=== PATIENT | female | born 1945 | race American Indian/Alaskan Native ===

== ENCOUNTER 2017-06-21 16:45 | Inpatient (IN) | payer MEDICARE ==
[~2017-06-21] VITALS: Ht 152.4 cm; Wt 63.6 kg
[2017-06-21 17:27] LABS: BASOPHILS ABSOLUTE AUTO 0.04 K/mm3 (0.00-0.23); BASOPHILS PERCENT AUTO 0 % (0-2); EOSINOPHILS ABSOLUTE AUTO 0.16 K/mm3 (0.00-0.68); EOSINOPHILS PERCENT AUTO 1 % (0-6); Hematocrit 30.2 % (33.0-51.0); Hemoglobin 9.7 g/dL (11.5-16.0); IMMATURE GRAN ABSOLUTE AUTO 0.17 K/mm3 (0.00-0.10); IMMATURE GRAN PERCENT AUTO 1 % (0-1); LYMPHOCYTES PERCENT AUTO 9 % (21-46); MONOCYTES ABSOLUTE AUTO 0.55 K/mm3 (0.16-1.47); MONOCYTES PERCENT AUTO 4 % (4-13); Mean Corpuscular HGB 29.2 pg (26.0-34.0); Mean Corpuscular HGB Conc 32.1 g/dL (31.5-36.5); Mean Corpuscular Volume 91 fL (80-100); Mean Platelet Volume 10.5 fL (9.1-12.4); NEUTROPHILS ABSOLUTE AUTO 12.05 K/mm3 (1.96-9.15); NEUTROPHILS PERCENT AUTO 84 % (41-73); Platelet Count 243 K/mm3 (150-400); RDW Coefficient Variation 14.3 % (11.7-14.2); RDW Standard Deviation 47.4 fL (35.1-46.3); Red Blood Cell Count 3.32 M/mm3 (3.80-5.20); White Blood Cell Count 14.27 K/mm3 (4.00-11.30)
[2017-06-21 17:35] LABS: Source, Urine Catheter
[2017-06-21 17:39] LABS: Alanine Aminotransfer (ALT/SGP 26 U/L (12-78); Albumin, Blood 3.3 g/dL (3.4-5.0); Alk Phos 105 U/L (50-136); Anion Gap 17 mmol/L (6-16); Aspartate Aminotrans (AST/SGOT 21 U/L (12-37); Bilirubin, Total 0.6 mg/dL (0.1-1.0); Blood Urea Nitrogen 72 mg/dL (8-24); Bun/Creatinine Ratio 32.6 (12.0-20.0); CO2, Blood 13 mmol/L (21-32); Calcium, Blood 8.8 mg/dL (8.5-10.1); Chloride, Blood 109 mmol/L (98-108); Creatinine, Blood 2.21 mg/dL (0.40-1.00); Globulin, Blood 3.3 g/dL (2.2-4.0); Glomerular Filtration Rate 23 (60-); Glucose, Blood 352 mg/dL (70-99); Magnesium, Blood 2.1 mg/dL (1.6-2.4); Potassium, Blood 4.4 mmol/L (3.5-5.5); Sodium, Blood 139 mmol/L (136-145); Total Protein, Blood 6.6 g/dL (6.4-8.2); Troponin I <0.015 ng/mL (0.000-0.040)
[2017-06-21] MEDS ORDERED: HYDCHL12.5 PO (17:42)
[2017-06-21] MEDS ORDERED: GABA300 PO (17:42)
[2017-06-21] MEDS ORDERED: VERA80 (17:42)
[2017-06-21] MEDS ORDERED: LISI20 PO (17:42)
[2017-06-21 17:50] LABS: Bilirubin, Urine Neg (Neg); Blood, Urine 2+ (Neg); Glucose Qualitative, Urine 2+ (Neg); Ketones, Urine Neg (Neg); Leukocyte Esterase, Urine 3+ (Neg); Nitrite, Urine Neg (Neg); Protein, Urine 4+ (Neg); Urobilinogen, Urine 1+ (Normal)
[2017-06-21 18:00] LABS: Appearance, Urine Hazy (Clear); Color, Urine Yellow (P-Yellow); Influenza A Negative (NEGATIVE); Influenza B Negative (NEGATIVE)
[2017-06-21 18:01] LABS: White Blood Cells, Urine TNTC /hpf (0-5)
[2017-06-21 18:02] LABS: Bacteria Many /hpf; Squamous Epithelial Cells Few /hpf (Few)
[2017-06-21 19:05] LABS: International Normalized Ratio 1.05; Prothrombin Time Results 10.9 Sec (9.7-11.5)
[2017-06-22 05:35] LABS: BASOPHILS ABSOLUTE AUTO 0.03 K/mm3 (0.00-0.23); BASOPHILS PERCENT AUTO 0 % (0-2); EOSINOPHILS PERCENT AUTO 0 % (0-6); Hematocrit 32.2 % (33.0-51.0); Hemoglobin 10.5 g/dL (11.5-16.0); IMMATURE GRAN ABSOLUTE AUTO 0.18 K/mm3 (0.00-0.10); IMMATURE GRAN PERCENT AUTO 1 % (0-1); LYMPHOCYTES ABSOLUTE AUTO 0.52 K/mm3 (0.84-5.20); LYMPHOCYTES PERCENT AUTO 3 % (21-46); MONOCYTES PERCENT AUTO 4 % (4-13); Mean Corpuscular HGB 28.6 pg (26.0-34.0); Mean Corpuscular HGB Conc 32.6 g/dL (31.5-36.5); Mean Corpuscular Volume 88 fL (80-100); Mean Platelet Volume 10.4 fL (9.1-12.4); NEUTROPHILS ABSOLUTE AUTO 19.54 K/mm3 (1.96-9.15); NEUTROPHILS PERCENT AUTO 93 % (41-73); Platelet Count 265 K/mm3 (150-400); RDW Standard Deviation 45.1 fL (35.1-46.3); Red Blood Cell Count 3.67 M/mm3 (3.80-5.20); White Blood Cell Count 21.07 K/mm3 (4.00-11.30)
[2017-06-22 06:04] LABS: Troponin I <0.015 ng/mL (0.000-0.040)
[2017-06-22 06:12] LABS: Alanine Aminotransfer (ALT/SGP 28 U/L (12-78); Albumin, Blood 3.3 g/dL (3.4-5.0); Albumin/Globulin Ratio 0.9 (0.8-1.8); Alk Phos 102 U/L (50-136); Anion Gap 13 mmol/L (6-16); Aspartate Aminotrans (AST/SGOT 20 U/L (12-37); Bilirubin, Total 0.5 mg/dL (0.1-1.0); Blood Urea Nitrogen 57 mg/dL (8-24); Bun/Creatinine Ratio 33.9 (12.0-20.0); CO2, Blood 18 mmol/L (21-32); Calcium, Blood 8.1 mg/dL (8.5-10.1); Chloride, Blood 112 mmol/L (98-108); Creatinine, Blood 1.68 mg/dL (0.40-1.00); Globulin, Blood 3.7 g/dL (2.2-4.0); Glomerular Filtration Rate 32 (60-); Glucose, Blood 280 mg/dL (70-99); Potassium, Blood 4.8 mmol/L (3.5-5.5); Sodium, Blood 143 mmol/L (136-145)
[2017-06-23] MEDS ORDERED: VERA180ERB PO (01:05)
[2017-06-23] MEDS ORDERED: ATOR40TA PO (01:08)
[2017-06-23] MEDS ORDERED: Sodium Bicarbo650 MG PO (01:10)
[2017-06-23] MEDS ORDERED: TRADJENTA5 MG PO (01:12)
[2017-06-23] MEDS ORDERED: CHOL10002 PO (01:13)
[2017-06-23 05:52] LABS: BASOPHILS ABSOLUTE AUTO 0.04 K/mm3 (0.00-0.23); BASOPHILS PERCENT AUTO 0 % (0-2); EOSINOPHILS ABSOLUTE AUTO 0.01 K/mm3 (0.00-0.68); EOSINOPHILS PERCENT AUTO 0 % (0-6); Hematocrit 33.5 % (33.0-51.0); Hemoglobin 11.1 g/dL (11.5-16.0); IMMATURE GRAN ABSOLUTE AUTO 0.14 K/mm3 (0.00-0.10); IMMATURE GRAN PERCENT AUTO 1 % (0-1); LYMPHOCYTES ABSOLUTE AUTO 0.76 K/mm3 (0.84-5.20); LYMPHOCYTES PERCENT AUTO 5 % (21-46); MONOCYTES ABSOLUTE AUTO 0.49 K/mm3 (0.16-1.47); MONOCYTES PERCENT AUTO 3 % (4-13); Mean Corpuscular HGB 28.8 pg (26.0-34.0); Mean Corpuscular HGB Conc 33.1 g/dL (31.5-36.5); Mean Corpuscular Volume 87 fL (80-100); Mean Platelet Volume 10.6 fL (9.1-12.4); NEUTROPHILS ABSOLUTE AUTO 15.55 K/mm3 (1.96-9.15); NEUTROPHILS PERCENT AUTO 92 % (41-73); Platelet Count 262 K/mm3 (150-400); RDW Coefficient Variation 14.5 % (11.7-14.2); RDW Standard Deviation 45.7 fL (35.1-46.3); Red Blood Cell Count 3.86 M/mm3 (3.80-5.20); White Blood Cell Count 16.99 K/mm3 (4.00-11.30)
[2017-06-23 06:13] LABS: Bun/Creatinine Ratio 28.9 (12.0-20.0); Creatinine, Blood 1.42 mg/dL (0.40-1.00); Potassium, Blood 4.1 mmol/L (3.5-5.5)
[2017-06-23 11:00] LABS: IMMATURE RETIC FRACTION 5.8 % (2.3-16.0); RETIC HGB EQUIVALENT 34.9 pg (28.20-36.60); RETICULOCYTE ABSOLUTE 0.0683 M/mm3 (0.0200-0.1100); RETICULOCYTE COUNT PERCENT 1.72 % (0.50-2.50)
[2017-06-23 11:12] LABS: Percent Saturation 15.7 % (15.0-50.0)
[2017-06-24 06:07] LABS: BASOPHILS ABSOLUTE AUTO 0.02 K/mm3 (0.00-0.23); BASOPHILS PERCENT AUTO 0 % (0-2); EOSINOPHILS ABSOLUTE AUTO 0.01 K/mm3 (0.00-0.68); EOSINOPHILS PERCENT AUTO 0 % (0-6); Hematocrit 31.3 % (33.0-51.0); Hemoglobin 10.6 g/dL (11.5-16.0); IMMATURE GRAN ABSOLUTE AUTO 0.17 K/mm3 (0.00-0.10); IMMATURE GRAN PERCENT AUTO 1 % (0-1); LYMPHOCYTES ABSOLUTE AUTO 1.33 K/mm3 (0.84-5.20); LYMPHOCYTES PERCENT AUTO 9 % (21-46); MONOCYTES ABSOLUTE AUTO 1.22 K/mm3 (0.16-1.47); MONOCYTES PERCENT AUTO 8 % (4-13); Mean Corpuscular HGB 28.6 pg (26.0-34.0); Mean Corpuscular HGB Conc 33.9 g/dL (31.5-36.5); Mean Platelet Volume 10.3 fL (9.1-12.4); NEUTROPHILS ABSOLUTE AUTO 12.91 K/mm3 (1.96-9.15); NEUTROPHILS PERCENT AUTO 82 % (41-73); Platelet Count 276 K/mm3 (150-400); RDW Coefficient Variation 14.4 % (11.7-14.2); RDW Standard Deviation 44.4 fL (35.1-46.3); Red Blood Cell Count 3.71 M/mm3 (3.80-5.20); White Blood Cell Count 15.66 K/mm3 (4.00-11.30)
[2017-06-24 06:08] LABS: Mean Corpuscular Volume 84 fL (80-100)
[2017-06-24 06:30] LABS: Creatinine, Blood 2.44 mg/dL (0.40-1.00); Potassium, Blood 4.2 mmol/L (3.5-5.5)
[2017-06-25 05:28] LABS: BASOPHILS ABSOLUTE AUTO 0.02 K/mm3 (0.00-0.23); BASOPHILS PERCENT AUTO 0 % (0-2); EOSINOPHILS ABSOLUTE AUTO 0.11 K/mm3 (0.00-0.68); EOSINOPHILS PERCENT AUTO 1 % (0-6); Hematocrit 30.1 % (33.0-51.0); Hemoglobin 9.8 g/dL (11.5-16.0); IMMATURE GRAN ABSOLUTE AUTO 0.12 K/mm3 (0.00-0.10); IMMATURE GRAN PERCENT AUTO 1 % (0-1); LYMPHOCYTES ABSOLUTE AUTO 1.75 K/mm3 (0.84-5.20); LYMPHOCYTES PERCENT AUTO 14 % (21-46); MONOCYTES ABSOLUTE AUTO 0.95 K/mm3 (0.16-1.47); MONOCYTES PERCENT AUTO 8 % (4-13); Mean Corpuscular HGB 28.4 pg (26.0-34.0); Mean Corpuscular HGB Conc 32.6 g/dL (31.5-36.5); Mean Platelet Volume 9.8 fL (9.1-12.4); NEUTROPHILS ABSOLUTE AUTO 9.21 K/mm3 (1.96-9.15); NEUTROPHILS PERCENT AUTO 76 % (41-73); Platelet Count 266 K/mm3 (150-400); RDW Coefficient Variation 14.4 % (11.7-14.2); RDW Standard Deviation 45.8 fL (35.1-46.3); Red Blood Cell Count 3.45 M/mm3 (3.80-5.20); White Blood Cell Count 12.16 K/mm3 (4.00-11.30)
[2017-06-25 05:30] LABS: Mean Corpuscular Volume 87 fL (80-100)
[2017-06-25 06:10] LABS: Bun/Creatinine Ratio 22.3 (12.0-20.0); Creatinine, Blood 2.69 mg/dL (0.40-1.00); Potassium, Blood 3.6 mmol/L (3.5-5.5)
[2017-06-25] MEDS ORDERED: METR250 PO (10:06)
[2017-06-25] MEDS ORDERED: LEVO750 PO (10:06)
[2017-06-25] MEDS ORDERED: ACET325 PO (10:06)
[2017-06-25] MEDS ORDERED: LEVEMIR FL100 UNIT/1 SC (10:08)
[2017-06-25] MEDS ORDERED: ONDA4ODT MM (10:09)
[2017-06-25 13:37] LABS: Stool Occult Blood Guaiac 1 Pos (Neg)
== END 2017-06-25 12:00 | disposition home or self-care (01) | DRG 872 ==
LOC: ER 16:45 → MEDS 18:50 → ENPENDDIS 06-25 09:00 → MEDS 06-25 12:00
PROVIDERS: Emergency Medicine; Family Medicine; Hospitalist; Internal Medicine
PROC: 3E0234Z Introduction of Serum, Toxoid and Vaccine into Muscle, Percutaneous Approach (ICD-10-PCS; principal; 2017-06-21)
DX: A41.51 Sepsis due to Escherichia coli [E. coli] (principal); N17.9 Acute kidney failure, unspecified; E11.22 Type 2 diabetes mellitus with diabetic chronic kidney disease; E11.65 Type 2 diabetes mellitus with hyperglycemia; I95.9 Hypotension, unspecified; D63.1 Anemia in chronic kidney disease; N18.3 Chronic kidney disease, stage 3 (moderate); N39.0 Urinary tract infection, site not specified; Z23 Encounter for immunization; K52.9 Noninfective gastroenteritis and colitis, unspecified; K80.80 Other cholelithiasis without obstruction; I12.9 Hypertensive chronic kidney disease with stage 1 through stage 4 chronic kidney disease, or unspecified chronic kidney disease; E86.0 Dehydration; E78.5 Hyperlipidemia, unspecified; Z66 Do not resuscitate; M54.2 Cervicalgia; Z91.14 Patient's other noncompliance with medication regimen; Z87.891 Personal history of nicotine dependence; Z79.899 Other long term (current) drug therapy
CPT/HCPCS: 36415; 71045; 72040; 74177; 76705; 80048; 80053; 81001; 82272; 82607; 82728; 82746; 82947; 83036; 83540; 83550; 83605; 83735; 84484; 85025; 85045; 85610; 85730; 87040; 87077; 87086; 87186; 87493; 87804; 93005; 93010; 96361; 96374; 99285; A9270; G0008; J0360; J0696; J1650; J1815; J1817; J1956; J2405; J7030; Q2038; Q9967

== ENCOUNTER → 2017-07-04 | Outpatient (CLI) | payer MEDICARE ==
[~2017-07-04] MED LIST: ACET325 PO; ATOR40TA PO; CHOL10002 PO; GABA300 PO; HYDCHL12.5 PO; LEVEMIR FL100 UNIT/1 SC; LEVO750 PO; LISI20 PO; METR250 PO; ONDA4ODT MM; Sodium Bicarbo650 MG PO; TRADJENTA5 MG PO; VERA180ERB PO; VERA80
[2017-07-04 16:51] LABS: Creatinine, Urine Random 75.9 mg/dL (27.00-270.00); Protein, Urine Random 15.1 mg/dL (0.0-11.9)
== END | disposition home or self-care (01) ==
LOC: OLS 13:22
PROVIDERS: Internal Medicine
DX: N18.3 Chronic kidney disease, stage 3 (moderate) (principal)
CPT/HCPCS: 82570; 84156

== ENCOUNTER 2018-07-19 13:44 | Inpatient (IN) | payer MEDICARE ==
[~2018-07-19] VITALS: Ht 167.6 cm; Wt 68.5 kg
[2018-07-19 14:25] LABS: Source, Urine Catheter
[2018-07-19] MEDS ORDERED: HYDCHL25 PO (14:29)
[2018-07-19] MEDS ORDERED: SITA50T2 PO (14:30)
[2018-07-19 14:34] LABS: Appearance, Urine Hazy (Clear); Bilirubin, Urine Neg (Neg); Blood, Urine 1+ (Neg); Color, Urine Yellow (P-Yellow); Glucose Qualitative, Urine 1+ (Neg); Ketones, Urine Neg (Neg); Leukocyte Esterase, Urine Neg (Neg); Nitrite, Urine Neg (Neg); Protein, Urine 2+ (Neg); Urobilinogen, Urine 1+ (Normal)
[2018-07-19 14:43] LABS: Hematocrit 26.5 % (33.0-51.0); Hemoglobin 8.6 g/dL (11.5-16.0); Mean Corpuscular HGB 30.1 pg (26.0-34.0); Mean Corpuscular HGB Conc 32.5 g/dL (31.5-36.5); Mean Corpuscular Volume 93 fL (80-100); Mean Platelet Volume 10.9 fL (9.1-12.4); NRBC ABSOLUTE 0.05 K/mm3 (0.00-0.02); NRBC Auto 1.9 /100 WBC (0.0-0.2); Platelet Count 188 K/mm3 (150-400); RDW Coefficient Variation 13.2 % (11.7-14.2); RDW Standard Deviation 45.3 fL (35.1-46.3); Red Blood Cell Count 2.86 M/mm3 (3.80-5.20)
[2018-07-19 14:44] LABS: Bacteria Rare /hpf; Squamous Epithelial Cells Many /hpf (Few)
[2018-07-19 14:50] LABS: PCO2 Arterial 26.6 mmHg (35-45); PO2 Arterial 46 mmHg (80-100); pH Blood Arterial 7.29 (7.35-7.45)
[2018-07-19 14:59] LABS: Alanine Aminotransfer (ALT/SGP 17 U/L (12-78); Albumin, Blood 2.2 g/dL (3.4-5.0); Albumin/Globulin Ratio 0.5 (0.8-1.8); Alk Phos 82 U/L (50-136); Anion Gap 18 mmol/L (6-16); Aspartate Aminotrans (AST/SGOT 20 U/L (12-37); Bilirubin, Total 0.6 mg/dL (0.1-1.0); Blood Urea Nitrogen 121 mg/dL (8-24); Bun/Creatinine Ratio 26.9 (12.0-20.0); CO2, Blood 12 mmol/L (21-32); Calcium, Blood 8.3 mg/dL (8.5-10.1); Chloride, Blood 106 mmol/L (98-108); Creatinine, Blood 4.49 mg/dL (0.40-1.00); Globulin, Blood 4.2 g/dL (2.2-4.0); Glomerular Filtration Rate 10 (60-); Glucose, Blood 241 mg/dL (70-99); Magnesium, Blood 1.8 mg/dL (1.6-2.4); Potassium, Blood 3.8 mmol/L (3.5-5.5); Sodium, Blood 136 mmol/L (136-145); Total Protein, Blood 6.4 g/dL (6.4-8.2); Troponin I <0.015 ng/mL (0.000-0.040)
[2018-07-19 15:05] LABS: Influenza A Negative (NEGATIVE); Influenza B Negative (NEGATIVE)
[2018-07-19 15:40] LABS: BAND PERCENT MAN 17 % (0-8); BASOPHILS PERCENT MAN 0 % (0-2); BLASTS PERCENT MAN 2 % (0-0); EOSINOPHILS PERCENT MAN 0 % (0-6); LYMPHOCYTES ABSOLUTE MAN 0.35 K/mm3 (0.84-5.20); LYMPHOCYTES PERCENT MAN 13 % (21-46); METAMYELOCYTE ABSOLUTE MAN 1.05 K/mm3 (0.00-0.00); METAMYELOCYTE PERCENT MAN 39 % (0-0); MONOCYTES ABSOLUTE MAN 0.18 K/mm3 (0.16-1.47); MONOCYTES PERCENT MAN 7 % (4-13); MYELOCYTE ABSOLUTE MAN 0.32 K/mm3 (0.00-0.00); MYELOCYTE PERCENT MAN 12 % (0-0); NEUTROPHILS ABSOLUTE MAN 0.72 K/mm3 (1.96-9.15); SEG NEUTROPHILS PERCENT MAN 10 % (41-73); TOTAL CELLS COUNTED 100
--- NOTE | 2018-07-19 18:49 | NUR ---
PATIENT ARRIVED TO UNIT ON ER [facility] WITH 2 ER NURSES AT 1754. PATIENT ARRIVED APPEARING VERY ILL, SKIN YELLOWED, AGONAL BREATHING. PATIENT STARING STRAIGHT FORWARD AND RESPONDS MINIMALLY TO VERBAL STIMULI. AUDIBLE CRACKLES HEARD WHEN PATIENT BREATHING BY NURSE STANDING AT BEDSIDE. PATIENT ARRIVED TO UNIT AT 6 L NC. ER NURSES LEFT UNIT. DR. CORNELIUS CALLED AND INFORMED THAT IT APPEARED PATIENT WAS ACTIVELY DYING. PATIENT IS DNR. DR. CORNELIUS STATED SHE WOULD BE IN SHORTLY. PATIENT BEING HOOKED UP TO MONITOR. PATIENT SATTING IN THE 50S. RT CALLED AND PATIENT STARTED TO BE BAGGED BY CHARGE NURSE, ISIDRO NAPOLES. PRIMARY NURSE STARTING 1 L BOLUS OF LR. PATIENT'S COUSIN IN HALLWAY THAT BROUGHT PATIENT IN WAS BROUGHT INTO PATIENT ROOM. RT IN ROOM AT 1800. NOREBREATHER PLACED AND 15 L NC PLACED IN PATIENT'S MOUTH. DR. CORNELIUS IN ROOM AT 1810 SPEAKING TO PATIENT'S COUSIN AND ASSESSING PATIENT. PATIENT'S COUSIN RECONFIRMED THAT PATIENT DID NOT WANT TO BE RESUSCITATED AND BELIEVED THAT " WHEN IT WAS HER TIME, IT WAS HER TIME". PATIENT'S COUSIN STATED THAT THE REST OF THE FAMILY WAS ON THE WAY AND THAT THEY WOULD THEN MAKE THE PATIENT COMFORT CARE. BOLUS REMAINS INFUSING AND NONREBREATHER REMAINS ON PATIENT.
--- NOTE | 2018-07-19 19:07 | NUR ---
PER FAMILY REQUEST TO START COMFORT CARE: IV BOLUS STOPPED. NONREBREATHER REMOVED. 2 L 02 VIA NC PLACED. PATIENT APPEARS COMFORTABLE AT THIS TIME PER NURSE AND PER FAMILY. ONCOMING CUSTOMER SERVICE ENGINEER NURSE, SWAPNIL, IN TO MEET PATIENT AND FAMILY.
--- NOTE | 2018-07-19 19:24 | NUR ---
PATIENT PASSED AT 1915 WITH FAMILY AT BEDSIDE.
== END 2018-07-19 19:16 | DRG 871 ==
LOC: ER 13:44 → ERHOLD 15:20 → ICUW 16:36
PROVIDERS: Emergency Medicine; ADMIT Internal Medicine
DX: A41.9 Sepsis, unspecified organism (principal); J18.9 Pneumonia, unspecified organism; J96.01 Acute respiratory failure with hypoxia; N17.9 Acute kidney failure, unspecified; E87.2 Acidosis; Z66 Do not resuscitate; Z51.5 Encounter for palliative care; I95.9 Hypotension, unspecified; R65.20 Severe sepsis without septic shock; E86.1 Hypovolemia; E11.22 Type 2 diabetes mellitus with diabetic chronic kidney disease; I12.9 Hypertensive chronic kidney disease with stage 1 through stage 4 chronic kidney disease, or unspecified chronic kidney disease; N18.3 Chronic kidney disease, stage 3 (moderate); D63.1 Anemia in chronic kidney disease; E78.5 Hyperlipidemia, unspecified; F17.210 Nicotine dependence, cigarettes, uncomplicated; Z79.84 Long term (current) use of oral hypoglycemic drugs; Z79.899 Other long term (current) drug therapy
CPT/HCPCS: 36415; 36600; 51701; 71045; 80053; 81001; 82272; 82803; 83605; 83735; 84484; 85025; 86850; 86900; 86901; 87040; 87147; 87804; 93005; 93010; 96365-59; 96366-59; 96375-59; 96376-59; 99285-25; C9113; J0456; J0696; J7050; J7120